=== PATIENT | female | born 1950 | race Caucasian/White ===

== ENCOUNTER → 2024-05-16 07:00 | Outpatient (REF) | payer MEDICARE, OTHER, SELFPAY | LOC: RAD 07:00 | PROVIDERS: ATTENDING PHYSICIAN Internal Medicine; REFERRING PHYSICIAN Internal Medicine Cardiovascular Disease | DX: H53.9 Unspecified visual disturbance (principal); Q67.0 Congenital facial asymmetry | CPT/HCPCS: 70450 ==